=== PATIENT | male | born 1955 | race African-American/Black ===

== ENCOUNTER 2017-03-05 20:04 | Emergency (ER) | payer MEDICAID, MEDICARE ==
[~2017-03-05] VITALS: Ht 177.8 cm; Wt 81.6 kg
[~2017-03-05 20:04] MED LIST: AMLODIPINE BESYL5 MG ORAL; APRESOLINE10 MG ORAL; ASPIRIN EC81 MG; ISOSORBIDE DINI10 MG ORAL; MECLIZINE HCL25 MG ORAL; NEXIUM20 M1 ORAL; SPIRONOLACTONE25 MG
[2017-03-05 20:05] VITALS: BP 145/88
--- NOTE | 2017-03-05 21:08 | Emergency Room Report ---
History of Present Illness General Chief Complaint: Generalized Weakness Source: Patient Present Illness HPI 61YOM BIBEMS with SOB after "smoking crack" Friday-Friday Didnt smoke last 3 days Took ASA yesterday ?history of CHF. Used to take lasix/spironolactone but stopped because "they dont work." No other medical problems Allergies: Coded Allergies: LISINOPRIL (Verified Allergy, Unknown, 07/08/15) Patient History Past Medical History: CHF Past Surgical History: none Pertinent Family History: none Social History: Reports: smoking, drug use Immunizations: UTD Reviewed Nursing Documentation: PMH: Agreed, PSxH: Agreed Nursing Documentation-PMH Hx Cardiac Problems: Yes - CVA, CHF Hx Hypertension: Yes Hx Cancer: No Hx Gastrointestinal Problems: Yes Hx Neurological Problems: No Review of Systems All Other Systems: negative except mentioned in HPI Physical Exam Vital Signs Date Time Temp Pulse Resp B/P (MAP) Pulse Ox O2 Delivery O2 Flow Rate FiO2 03/05/17 19:56 98.4 83 16 145/88 100 Room Air Sp02 EP Interpretation: reviewed, normal General Appearance: normal inspection, well appearing, no apparent distress, alert Head: normocephalic, atraumatic Eyes: bilateral eye PERRL, bilateral eye EOMI ENT: normal ENT inspection, hearing grossly normal, normal voice Neck: normal inspection, full range of motion, supple, no bony tend Respiratory: normal inspection, lungs clear, normal breath sounds, no respiratory distress, no retraction, no wheezing Cardiovascular #1: regular rate, rhythm, no edema Gastrointestinal: normal inspection, normal bowel sounds, non tender, soft, no guarding, no hernia Genitourinary: no CVA tenderness Musculoskeletal: normal inspection, back normal, normal range of motion, July' s Sign negative Neurologic: normal inspection, alert, oriented x3, responsive, 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 Afebrile. Not hypoxic. 100% on RA. Labs: No Leuks. H&H stable. Mild ANA (Vs unknown CKD). Trop WNL Utox cocaine + ASA given CXR negative for PTX, no pulm congestion. Endorsed to Dr Mayorga for tele bed/admit at [facility] for ACS rule out EKG Diagnostic Results Rate: normal, other - PVCs Rhythm: other - Interventricular block ST Segments: no acute changes Rhythm Strip Diag. Results EP Interpretation: yes Rate: 96 Rhythm: NSR, other - Multiple PVCs Last Vital Signs Date Time Temp Pulse Resp B/P (MAP) Pulse Ox O2 Delivery O2 Flow Rate FiO2 03/05/17 19:56 98.4 83 16 145/88 100 Room Air Status: improved Disposition: ADMITTED INPATIENT Condition: Serious AUGUSTA FARAH M.D. Mar 05, 2017 21:08
[2017-03-05 21:27] LABS: BASOPHILS % (AUTO) 2.1 % (0.0-2.0); EOSINOPHILS % (AUTO) 9.8 % (0.0-3.0); LYMPHOCYTES % (AUTO) 33.9 % (20.0-45.0); MEAN CORPUSCULAR HGB CONC 31.4 G/DL (32.0-36.0); MEAN CORPUSCULAR VOLUME 89 FL (80-99); MEAN PLATELET VOLUME 7.4 FL (6.5-10.1); MONOCYTES % (AUTO) 6.1 % (1.0-10.0); NEUTROPHILS % (AUTO) 48.1 % (45.0-75.0); PLATELET COUNT 314 K/UL (150-450); RED CELL DISTRIBUTION WIDTH 14.5 % (11.6-14.8); WHITE BLOOD COUNT 5.5 K/UL (4.8-10.8)
[2017-03-05] MEDS ORDERED: FUROSEMIDE20 M1 ORAL (21:33)
[2017-03-05] MEDS ORDERED: ACETAMINOPHEN500 M5 PO (21:33)
[2017-03-05 22:05] VITALS: BP 140/80
[2017-03-05 22:06] LABS: ALANINE AMINOTRANSFERASE 29 U/L (12-78); ALBUMIN/GLOBULIN RATIO 0.8 (1.0-2.7); ANION GAP 10 mmol/L (5-15); ASPARTATE AMINO TRANSFERASE 19 U/L (15-37); CALCIUM 9.1 MG/DL (8.5-10.1); CARBON DIOXIDE 26 MMOL/L (21-32); CHLORIDE 106 MMOL/L (98-107); CKMB 2.1 NG/ML (0.0-3.6); CREATININE 1.5 MG/DL (0.55-1.30); GLOMERULAR FILTRATION RATE 58.1 mL/min (>60); POTASSIUM 3.8 MMOL/L (3.5-5.1); SODIUM 142 MMOL/L (136-145); TOTAL PROTEIN 7.2 G/DL (6.4-8.2)
[2017-03-05 22:19] LABS: BILIRUBIN,DIRECT 0.3 MG/DL (0.0-0.3)
[2017-03-06 00:05] VITALS: BP 125/95
[2017-03-06 00:49] VITALS: BP 128/96
--- NOTE | 2017-03-06 12:26 | Diagnostic Imaging Report ---
Indication: Dyspnea Comparison: 11/27/13 A single view chest radiograph was obtained. Findings: Interstitial edema and prominent vascularity and heart size demonstrated. Old right-sided rib fractures again noted. Bones are osteopenic. Impression: Mild CHF/interstitial edema.
--- NOTE | 2017-03-10 12:11 | Cardiology Report ---
APPROVED REPORT EKG Measurement Heart [id number] MN 178P-14 [id number] Sinus rhythm with frequent premature ventricular complexes Nonspecific intraventricular block Possible Inferior infarct, age undetermined Abnormal ECG
== END 2017-03-06 00:49 | disposition short-term general hospital (02) ==
LOC: EDBD 20:04 → EMR 20:40
DX: R07.9 Chest pain, unspecified (principal); R53.1 Weakness; I10 Essential (primary) hypertension; Z86.73 Personal history of transient ischemic attack (TIA), and cerebral infarction without residual deficits; I50.9 Heart failure, unspecified; F14.10 Cocaine abuse, uncomplicated; N17.9 Acute kidney failure, unspecified; F17.200 Nicotine dependence, unspecified, uncomplicated
CPT/HCPCS: 36415; 71010; 80053; 80306; 82248; 82550; 82553; 84484; 85025; 93005; 99285